=== PATIENT | female | born 1980 | race Two or more races ===

== ENCOUNTER 2022-07-23 22:01 | Emergency (ER) | payer MEDICARE, MEDICAID ==
[~2022-07-23] VITALS: Ht 152.4 cm; Wt 93.5 kg
[2022-07-23 23:51] LABS: Basophils # (auto) 0.2 10 ^3/uL (0-0.2); Basophils % (auto) 1.9 % (0.0-2.0); Eosinophils # (auto) 0.1 10 ^3/uL (0-0.8); Eosinophils % (auto) 0.5 % (0.0-7.0); Hematocrit 32.8 % (36.0-46.0); Hemoglobin 10.2 g/dL (12.2-16.2); Lymphocytes # (auto) 1.4 10 ^3/uL (0.4-5.4); Lymphocytes % (auto) 13.1 % (10.0-50.0); Mean Corpuscular Hemoglobin 23.2 pg (28.0-32.0); Mean Corpuscular Hgb Conc. 31.2 g/dL (32.0-36.0); Mean Corpuscular Volume 74.4 fL (80.0-100.0); Monocytes # (auto) 0.6 10 ^3/uL (0-1.3); Neutrophils # (auto) 8.8 10 ^3/uL (1.6-8.6); Neutrophils % (auto) 79.5 % (37.0-80.0); Red Blood Cells 4.41 10^6/uL (4.0-5.20); Red Cell Distribution Width 17.2 % (11.8-14.3); White Blood Cell 11.1 10^3/uL (4.4-10.8)
[2022-07-24 00:09] LABS: Albumin 3.2 g/dL (3.4-5.0); Calcium 8.4 mg/dL (8.5-10.1); Potassium 3.8 mmol/L (3.5-5.1)
[2022-07-24 00:11] LABS: Bilirubin, Total 0.2 mg/dL (0.2-1.0); Total Protein 7.2 g/dL (6.4-8.2)
[2022-07-24 00:19] LABS: Urine Bacteria NONE SEEN /hpf (None Seen); Urine Blood Negative /uL (Negative); Urine Specific Gravity 1.029 (1.001-1.035); Urine WBC 27 /hpf (0 - 5)
[2022-07-24] MEDS ORDERED: NITR-87 PO (01:20)
[2022-07-24] MEDS ORDERED: ZOFR4T PO (01:37)
[2022-07-24] MEDS ORDERED: ONDANSETRON ODT 4 MG TAB PO ONE (01:45)
[2022-07-24 02:34] VITALS: BP 138/84
== END 2022-07-24 02:39 | disposition home or self-care (01) ==
LOC: ER 22:04
DX: K92.2 Gastrointestinal hemorrhage, unspecified (principal); N39.0 Urinary tract infection, site not specified; E66.01 Morbid (severe) obesity due to excess calories; Z68.41 Body mass index [BMI] 40.0-44.9, adult; Z32.02 Encounter for pregnancy test, result negative
CPT/HCPCS: 36415; 80053; 81001; 81025; 85025; 86850; 86900; 86901; Q0162

== ENCOUNTER 2022-12-02 17:06 | Emergency (ER) | payer MEDICARE, MEDICAID ==
[~2022-12-02] VITALS: Ht 152.4 cm; Wt 90.1 kg
[~2022-12-02 17:06] MED LIST: NITR-87 PO; ZOFR4T PO
[2022-12-02 18:14] VITALS: BP 140/60; PULSE 120; RESP 20; TEMP 97.4; O2SAT 96
[2022-12-02] MEDS ORDERED: DexAMETHasone SOD PHOS 10MG/1ML VIAL INJ IM ONE (18:45)
[2022-12-02] MEDS ORDERED: HYDROcodone-ACET 5/325MG TAB PO ONE (18:45)
[2022-12-02] MEDS ORDERED: KETOROLAC TROMETH 60MG/2ML VIAL IM ONE (18:45)
[2022-12-02 20:06] LABS: Urine Bacteria FEW /hpf (None Seen); Urine Blood 3+ /uL (Negative); Urine Clarity HAZY (Clear); Urine Color PINK (Yellow); Urine Mucus FEW (None Seen); Urine Protein, UAD 1+ (Negative); Urine Specific Gravity 1.027 (1.001-1.035); Urine Urobilinogen Normal (Negative); Urine WBC 38 /hpf (0 - 5); Urine pH 5.5 (5.0-8.0)
[2022-12-02] MEDS ORDERED: METH-1181 PO (20:38)
[2022-12-02] MEDS ORDERED: NITR-87 PO (20:38)
[2022-12-02] MEDS ORDERED: IBUP-1456 PO (21:29)
== END 2022-12-02 22:04 | disposition home or self-care (01) ==
LOC: ER 17:06
DX: M54.42 Lumbago with sciatica, left side (principal); M54.41 Lumbago with sciatica, right side; N30.90 Cystitis, unspecified without hematuria; J45.909 Unspecified asthma, uncomplicated
CPT/HCPCS: 72100; 81001; 87086; 96372; 99284; J1100; J1885

== ENCOUNTER 2023-01-18 08:17 | Emergency (ER) | payer OTHER, MEDICAID ==
[~2023-01-18] VITALS: Ht 152.4 cm; Wt 89.3 kg
[~2023-01-18 08:17] MED LIST changes: +IBUP-1456 PO; +METH-1181 PO
[2023-01-18 09:09] VITALS: BP 127/53; PULSE 107; RESP 18; TEMP 98.3; O2SAT 98
[2023-01-18] MEDS ORDERED: ONDANSETRON ODT 4 MG TAB PO ONE (09:15)
[2023-01-18] MEDS ORDERED: ACETAMINOPHEN 500 MG TAB PO ONE (09:15)
[2023-01-18] MEDS ORDERED: IBUP-1456 PO (10:21)
[2023-01-18] MEDS ORDERED: AMOX875T3 PO (10:21)
== END 2023-01-18 10:26 | disposition home or self-care (01) ==
LOC: ER 08:17
DX: G44.209 Tension-type headache, unspecified, not intractable (principal); H66.91 Otitis media, unspecified, right ear; J45.909 Unspecified asthma, uncomplicated; Z86.2 Personal history of diseases of the blood and blood-forming organs and certain disorders involving the immune mechanism; Z79.1 Long term (current) use of non-steroidal anti-inflammatories (NSAID); Z79.2 Long term (current) use of antibiotics; Z79.899 Other long term (current) drug therapy
CPT/HCPCS: 70450; 99284; Q0162

== ENCOUNTER 2023-05-09 10:51 | Inpatient (IN) | payer OTHER, MEDICAID ==
[~2023-05-09] VITALS: Ht 180.3 cm; Wt 87.9 kg
[~2023-05-09 10:51] MED LIST changes: +AMOX875T3 PO
[2023-05-09] MEDS: ONDANSETRON ODT 4 MG TAB PO ONE (12:11)
[2023-05-09 12:24] LABS: Basophils # (auto) 0 10 ^3/uL (0-0.2); Eosinophils # (auto) 0.1 10 ^3/uL (0-0.8); Eosinophils % (auto) 1.2 % (0.0-7.0); Hematocrit 40.8 % (36.0-46.0); Monocytes # (auto) 0.3 10 ^3/uL (0-1.3); Nucleated Red Blood Cells % 0.1 %
[2023-05-09] MEDS: DICYCLOMINE HCL (10MG/ML) 2 ML AMPULE IM ONE (12:24)
[2023-05-09 12:26] LABS: Basophils % (auto) 0.4 % (0.0-2.0); Hemoglobin 13.3 g/dL (12.2-16.2); Lymphocytes # (auto) 1.5 10 ^3/uL (0.4-5.4); Lymphocytes % (auto) 19.9 % (10.0-50.0); Mean Corpuscular Hemoglobin 26.1 pg (28.0-32.0); Mean Corpuscular Hgb Conc. 32.5 g/dL (32.0-36.0); Mean Corpuscular Volume 80.5 fL (80.0-100.0); Monocytes % (auto) 4.6 % (0.0-12.0); Neutrophils # (auto) 5.4 10 ^3/uL (1.6-8.6); Neutrophils % (auto) 73.9 % (37.0-80.0); Red Blood Cells 5.07 10^6/uL (4.0-5.20); Red Cell Distribution Width 15.7 % (11.8-14.3); White Blood Cell 7.3 10^3/uL (4.4-10.8)
[2023-05-09 12:42] LABS: Alanine Aminotransferase 24 U/L (7-40); Albumin 4.4 g/dL (3.2-4.8); Alkaline Phosphatase 113 U/L (46-116); Anion Gap 4 (5-15); Aspartate Aminotransferase 14 U/L (13-40); BUN/Creatinine Ratio 22.9 (10.0-20.0); Blood Urea Nitrogen 16 mg/dL (9-23); Calcium 9.3 mg/dL (8.7-10.4); Carbon Dioxide 27 mmol/L (20-30); Chloride 108 mmol/L (98-107); Glucose 106 mg/dL (74-106); Lipase 35 U/L (12-53); Potassium 4.1 mmol/L (3.5-5.1); Sodium 139 mmol/L (136-145)
[2023-05-09 12:43] LABS: Bilirubin, Total 0.4 mg/dL (0.2-1.0)
[2023-05-09 14:07] LABS: Urine Bacteria NONE SEEN /hpf (None Seen); Urine Blood Negative /uL (Negative); Urine Clarity Clear (Clear); Urine Protein, UAD Negative (Negative); Urine Specific Gravity 1.018 (1.001-1.035); Urine Urobilinogen Normal (Negative); Urine WBC 2 /hpf (0 - 5); Urine pH 5.5 (5.0-8.0)
[2023-05-09 14:08] LABS: Urine Color Straw (Yellow)
[2023-05-09] MEDS ORDERED: ACETAMINOPHEN 325 MG TAB PO PRN (14:30)
[2023-05-09] MEDS ORDERED: NITROGLYCERIN 0.4 MG SL TAB SL PRN (14:30)
[2023-05-09] MEDS ORDERED: OMEP1CAP70 PO (14:30)
[2023-05-09] MEDS ORDERED: HYDROcodone-ACET 5/325MG TAB PO PRN (14:30)
[2023-05-09] MEDS ORDERED: DOCUSATE SOD 100 MG CAP PO PRN (14:30)
[2023-05-09] MEDS ORDERED: MONT-8 PO (14:30)
[2023-05-09] MEDS ORDERED: SUCR1TAB PO (14:30)
[2023-05-09] MEDS ORDERED: MORPHINE SULFATE INJ 2 MG/ml SYRG IV PRN ×2 (14:30)
[2023-05-09] MEDS: SODIUM CHLORIDE 0.9% 1,000 ML IV ONE (16:42)
[2023-05-09 20:40] VITALS: PULSE 106; RESP 18; O2SAT 96
[2023-05-09] MEDS: ONDANSETRON HCL 4 MG/2 ML VIAL IV PRN (21:00)
[2023-05-09] MEDS: FAMOTIDINE (10MG/ML) 2ML VL IV ONE (21:05)
[2023-05-09 22:04] VITALS: PULSE 80; RESP 17; O2SAT 99
[2023-05-09] MEDS: MONTELUKAST SODIUM 10 MG TAB PO SCH (22:55)
[2023-05-10] VITALS (10 sets, daily range): BP systolic 101–116; BP diastolic 56–69; PULSE 73–88; RESP 17–20; TEMP 97.3–98.4; O2SAT 93–99
[2023-05-10 06:31] LABS: Basophils # (auto) 0 10 ^3/uL (0-0.2); Eosinophils # (auto) 0.2 10 ^3/uL (0-0.8); Hemoglobin 11.8 g/dL (12.2-16.2); Neutrophils # (auto) 5.5 10 ^3/uL (1.6-8.6)
[2023-05-10 06:33] LABS: Basophils % (auto) 0.3 % (0.0-2.0); Eosinophils % (auto) 2.6 % (0.0-7.0); Hematocrit 36.4 % (36.0-46.0); Lymphocytes % (auto) 23.8 % (10.0-50.0); Mean Corpuscular Hemoglobin 26.1 pg (28.0-32.0); Mean Corpuscular Hgb Conc. 32.4 g/dL (32.0-36.0); Mean Corpuscular Volume 80.5 fL (80.0-100.0); Monocytes # (auto) 0.6 10 ^3/uL (0-1.3); Neutrophils % (auto) 66.3 % (37.0-80.0); Nucleated Red Blood Cells % 0.1 %; Red Blood Cells 4.53 10^6/uL (4.0-5.20); Red Cell Distribution Width 15.4 % (11.8-14.3); White Blood Cell 8.2 10^3/uL (4.4-10.8)
[2023-05-10 06:57] LABS: Alanine Aminotransferase 16 U/L (7-40); Albumin 3.8 g/dL (3.2-4.8); Alkaline Phosphatase 94 U/L (46-116); Anion Gap 8 (5-15); Aspartate Aminotransferase 12 U/L (13-40); BUN/Creatinine Ratio 11.4 (10.0-20.0); Bilirubin, Total 0.6 mg/dL (0.2-1.0); Blood Urea Nitrogen 8 mg/dL (9-23); Calcium 8.3 mg/dL (8.5-10.1); Carbon Dioxide 24 mmol/L (20-30); Chloride 108 mmol/L (98-107); Glucose 98 mg/dL (74-106); Potassium 3.5 mmol/L (3.5-5.1); Sodium 140 mmol/L (136-145); Total Protein 5.7 g/dL (5.7-8.2)
[2023-05-10] MEDS: PANTOPRAZOLE 40 MG TAB PO SCH ×2 (08:39→21:24)
[2023-05-10] MEDS: PROCHLORPERAZINE EDISYLATE 5 MG/ML 2ML VIAL IV PRN (08:39)
[2023-05-10] MEDS: SUCRALFATE 1 GM TAB PO SCH (08:39)
[2023-05-10] MEDS ORDERED: SODIUM CHLORIDE LOCK 10 ML ONE (13:38)
[2023-05-10] MEDS: LIDOCAINE VISCOUS 2% 15ML UD ONE (15:35)
[2023-05-10] MEDS: MIDAZOLAM HCL 5 MG/ML-1ML VIAL ONE (15:39)
[2023-05-10] MEDS: diphenhdrAMINE HCL 50 MG/1 ML VL ONE (15:39)
[2023-05-10] MEDS: fentaNYL CITRATE 100 MCG/2 ML VL ONE (15:39)
[2023-05-10] MEDS: SUCRALFATE 1 GM/10 ML ORAL SUSP PO SCH (17:07)
[2023-05-10] MEDS: METOCLOPRAMIDE HCL 5MG/ml INJ 2ml VIAL IV SCH (21:24)
[2023-05-11 01:00] VITALS: BP 144/65; PULSE 76; RESP 17; TEMP 98.2; O2SAT 96
[2023-05-11 05:00] VITALS: BP 111/65; PULSE 75; RESP 17; TEMP 98.1; O2SAT 97
[2023-05-11 08:00] VITALS: PULSE 76; RESP 18; O2SAT 96
[2023-05-11 09:00] VITALS: BP 122/65; PULSE 71; RESP 17; TEMP 97.8; O2SAT 98
[2023-05-11] MEDS ORDERED: SUCR1TAB31 OR (10:38)
[2023-05-11] MEDS ORDERED: METO-281 PO (10:38)
[2023-05-11] MEDS ORDERED: PANT40T PO (10:38)
[2023-05-11 13:00] VITALS: BP 124/68; PULSE 91; RESP 18; TEMP 98.3; O2SAT 96
== END 2023-05-11 14:56 | disposition home or self-care (01) | DRG 392 ==
LOC: ER 10:51 → TELE 14:26 → EAST 21:20
PROVIDERS: ADMIT Nurse Practitioner Family; ATTEND Family Medicine
PROC: 0DB68ZX Excision of Stomach, Via Natural or Artificial Opening Endoscopic, Diagnostic (ICD-10-PCS; 2023-05-10)
PROC: 0DB58ZX Excision of Esophagus, Via Natural or Artificial Opening Endoscopic, Diagnostic (ICD-10-PCS; 2023-05-10)
PROC: 0DB98ZX Excision of Duodenum, Via Natural or Artificial Opening Endoscopic, Diagnostic (ICD-10-PCS; principal; 2023-05-10 15:32)
DX: K29.90 Gastroduodenitis, unspecified, without bleeding (principal); K22.70 Barrett's esophagus without dysplasia; E66.01 Morbid (severe) obesity due to excess calories; E86.0 Dehydration; J45.909 Unspecified asthma, uncomplicated; K44.9 Diaphragmatic hernia without obstruction or gangrene; D64.9 Anemia, unspecified; K76.0 Fatty (change of) liver, not elsewhere classified; Z87.11 Personal history of peptic ulcer disease; Z90.49 Acquired absence of other specified parts of digestive tract; Z79.2 Long term (current) use of antibiotics; Z79.1 Long term (current) use of non-steroidal anti-inflammatories (NSAID); Z68.27 Body mass index [BMI] 27.0-27.9, adult; Z87.19 Personal history of other diseases of the digestive system
CPT/HCPCS: 36415; 43239; 74176; 76705; 80053; 81001; 83690; 84484; 84702; 85025; 96360; 96372; G0378; J2250; J2405; J3490; Q0162

== ENCOUNTER 2023-06-05 15:24 | Emergency (ER) | payer OTHER, MEDICAID ==
[~2023-06-05] VITALS: Ht 157.5 cm; Wt 81.0 kg
[~2023-06-05 15:24] MED LIST changes: +LEVO750T40 PO; +METO-281 PO; +MONT-8 PO; +OMEP1CAP70 PO; +PANT40T PO; +SUCR1TAB PO; +SUCR1TAB31 OR
[2023-06-05 15:49] LABS: Basophils # (auto) 0 10 ^3/uL (0-0.2); Basophils % (auto) 0.4 % (0.0-2.0); Eosinophils # (auto) 0 10 ^3/uL (0-0.8); Eosinophils % (auto) 0.1 % (0.0-7.0); Hematocrit 36.7 % (36.0-46.0); Hemoglobin 11.7 g/dL (12.2-16.2); Lymphocytes % (auto) 8.4 % (10.0-50.0); Mean Corpuscular Hemoglobin 25.5 pg (28.0-32.0); Mean Corpuscular Hgb Conc. 31.7 g/dL (32.0-36.0); Mean Corpuscular Volume 80.4 fL (80.0-100.0); Monocytes # (auto) 0.4 10 ^3/uL (0-1.3); Monocytes % (auto) 3.3 % (0.0-12.0); Neutrophils # (auto) 10.4 10 ^3/uL (1.6-8.6); Neutrophils % (auto) 87.8 % (37.0-80.0); Red Blood Cells 4.57 10^6/uL (4.0-5.20); Red Cell Distribution Width 15.5 % (11.8-14.3); White Blood Cell 11.9 10^3/uL (4.4-10.8)
[2023-06-05 16:03] LABS: Alanine Aminotransferase 73 U/L (7-40); Alkaline Phosphatase 103 U/L (46-116); Anion Gap 7 (5-15); Aspartate Aminotransferase 40 U/L (13-40); BUN/Creatinine Ratio 24.6 (10.0-20.0); Blood Urea Nitrogen 17 mg/dL (9-23); Calcium 8.8 mg/dL (8.5-10.1); Carbon Dioxide 24 mmol/L (20-30); Chloride 110 mmol/L (98-107); Glucose 118 mg/dL (74-106); Potassium 3.6 mmol/L (3.5-5.1); Sodium 141 mmol/L (136-145)
[2023-06-05 16:04] LABS: Albumin 4.1 g/dL (3.2-4.8); Bilirubin, Total 0.2 mg/dL (0.2-1.0); Total Protein 6.4 g/dL (5.7-8.2)
[2023-06-05] MEDS ORDERED: ACET500T58 PO (21:02)
[2023-06-05] MEDS ORDERED: BENZ200C64 PO (21:08)
[2023-06-05 21:42] VITALS: BP 134/78; PULSE 77; RESP 16; TEMP 97.9; O2SAT 98
[2023-06-05] MEDS: KETOROLAC TROMETH 60MG/2ML VIAL IM ONE (21:42)
== END 2023-06-05 22:19 | disposition home or self-care (01) ==
LOC: EDBD 15:24 → ER 15:24
DX: R07.89 Other chest pain (principal); J45.909 Unspecified asthma, uncomplicated; K21.9 Gastro-esophageal reflux disease without esophagitis; Z86.2 Personal history of diseases of the blood and blood-forming organs and certain disorders involving the immune mechanism; Z90.49 Acquired absence of other specified parts of digestive tract
CPT/HCPCS: 36415; 71045; 80053; 84484; 85025; 93005

== ENCOUNTER 2023-11-08 13:41 | Inpatient (IN) | payer OTHER, MEDICAID ==
[~2023-11-08] VITALS: Ht 152.4 cm; Wt 87.7 kg
[~2023-11-08 13:41] MED LIST changes: +ACET500T58 PO; +BENZ200C64 PO
[2023-11-08 14:18] LABS: Basophils # (auto) 0 10 ^3/uL (0-0.2); Basophils % (auto) 0.8 % (0.0-2.0); Eosinophils # (auto) 0.2 10 ^3/uL (0-0.8); Eosinophils % (auto) 3.1 % (0.0-7.0); Hematocrit 38.5 % (36.0-46.0); Hemoglobin 12.8 g/dL (12.2-16.2); Lymphocytes # (auto) 1.5 10 ^3/uL (0.4-5.4); Lymphocytes % (auto) 23.6 % (10.0-50.0); Mean Corpuscular Hemoglobin 26.5 pg (28.0-32.0); Mean Corpuscular Hgb Conc. 33.3 g/dL (32.0-36.0); Mean Corpuscular Volume 79.7 fL (80.0-100.0); Monocytes # (auto) 0.4 10 ^3/uL (0-1.3); Monocytes % (auto) 7.1 % (0.0-12.0); Neutrophils # (auto) 4.1 10 ^3/uL (1.6-8.6); Neutrophils % (auto) 65.4 % (37.0-80.0); Platelet Count (auto) 371 10^3/uL (140-450); Red Blood Cells 4.83 10^6/uL (4.0-5.20); Red Cell Distribution Width 15.8 % (11.8-14.3); White Blood Cell 6.3 10^3/uL (4.4-10.8)
[2023-11-08 14:33] LABS: Chloride 108 mmol/L (98-107); Potassium 3.8 mmol/L (3.5-5.1); Sodium 141 mmol/L (136-145)
[2023-11-08 14:34] LABS: Anion Gap 8 (5-15); Carbon Dioxide 25 mmol/L (20-31)
[2023-11-08 14:39] LABS: BUN/Creatinine Ratio 20.3 (10.0-20.0); Blood Urea Nitrogen 14 mg/dL (9-23); Glucose 97 mg/dL (74-106)
[2023-11-08 15:17] LABS: Urine Bacteria MANY /hpf (None Seen); Urine Blood 1+ /uL (Negative); Urine Budding Yeast FEW /hpf (None Seen); Urine Clarity Turbid (Clear); Urine Color Colorless (Yellow); Urine Protein, UAD Negative (Negative); Urine Specific Gravity 1.019 (1.001-1.035); Urine Urobilinogen Normal (Negative); Urine WBC 18 /hpf (0 - 5)
[2023-11-08 16:30] VITALS: PULSE 89; RESP 16; O2SAT 97
[2023-11-08] MEDS: ASPirin 325 MG TAB PO ONE (16:50)
[2023-11-08 19:24] VITALS: PULSE 93; RESP 16; O2SAT 97
[2023-11-08] MEDS: cefTRIAXone 1GM/50ML D5W 50 ML IV ONE (19:28)
[2023-11-08] MEDS ORDERED: LORazepam 2MG/ML-1ML VIAL IV PRN (22:30)
[2023-11-08] MEDS ORDERED: MORPHINE SULFATE INJ 2 MG/ml SYRG IV PRN (22:30)
[2023-11-08] MEDS ORDERED: NITROGLYCERIN 0.4 MG SL TAB SL PRN (22:30)
[2023-11-08] MEDS: BUDESONIDE (INHALATION) 0.5 MG/2 ML NEB NEB ONE (22:58)
[2023-11-08] MEDS: PANTOPRAZOLE 40 MG/10 ML VIAL INJ IV ONE (22:59)
[2023-11-08 23:00] VITALS: O2SAT 99
[2023-11-08 23:01] VITALS: BP 137/90; PULSE 80; RESP 18; TEMP 98.6; O2SAT 99
[2023-11-08 23:15] LABS: Albumin 4.9 g/dL (3.2-4.8); Bilirubin, Total 0.4 mg/dL (0.2-1.0); Total Protein 7.7 g/dL (5.7-8.2)
[2023-11-08 23:35] LABS: Bilirubin, Direct 0.1 mg/dL (<0.3)
[2023-11-09] VITALS (7 sets, daily range): BP systolic 95–126; BP diastolic 60–72; PULSE 80–103; RESP 16–20; TEMP 97.6–98.3; O2SAT 96–100
[2023-11-09] MEDS: SODIUM CHLORIDE 0.9% 1,000 ML IV ONE (00:27)
[2023-11-09 03:06] LABS: Basophils # (auto) 0 10 ^3/uL (0-0.2); Eosinophils # (auto) 0.2 10 ^3/uL (0-0.8); Lymphocytes # (auto) 1.8 10 ^3/uL (0.4-5.4); Mean Corpuscular Hgb Conc. 32.9 g/dL (32.0-36.0); Monocytes # (auto) 0.5 10 ^3/uL (0-1.3)
[2023-11-09 03:07] LABS: Basophils % (auto) 0.5 % (0.0-2.0); Eosinophils % (auto) 3.1 % (0.0-7.0); Hematocrit 38.2 % (36.0-46.0); Hemoglobin 12.6 g/dL (12.2-16.2); Lymphocytes % (auto) 23.9 % (10.0-50.0); Mean Corpuscular Hemoglobin 26.5 pg (28.0-32.0); Mean Corpuscular Volume 80.4 fL (80.0-100.0); Monocytes % (auto) 6.7 % (0.0-12.0); Neutrophils # (auto) 5.1 10 ^3/uL (1.6-8.6); Neutrophils % (auto) 65.8 % (37.0-80.0); Nucleated Red Blood Cells % 0.1 %; Platelet Count (auto) 363 10^3/uL (140-450); Red Blood Cells 4.75 10^6/uL (4.0-5.20); Red Cell Distribution Width 16.1 % (11.8-14.3); White Blood Cell 7.7 10^3/uL (4.4-10.8)
[2023-11-09 03:14] LABS: Alanine Aminotransferase 125 U/L (7-40); Albumin 4.7 g/dL (3.2-4.8); Alkaline Phosphatase 121 U/L (46-116); Anion Gap 7 (5-15); Aspartate Aminotransferase 63 U/L (13-40); BUN/Creatinine Ratio 16.7 (10.0-20.0); Bilirubin, Total 0.4 mg/dL (0.2-1.0); Blood Urea Nitrogen 12 mg/dL (9-23); Calcium 9.6 mg/dL (8.7-10.4); Carbon Dioxide 22 mmol/L (20-31); Chloride 108 mmol/L (98-107); Glucose 114 mg/dL (74-106); Magnesium 2.1 mg/dL (1.6-2.6); Potassium 3.4 mmol/L (3.5-5.1); Sodium 137 mmol/L (136-145); Total Protein 7.4 g/dL (5.7-8.2)
[2023-11-09] MEDS: POTASSIUM EFFERVESENT TAB 25 MEQ PO ONE (08:23)
[2023-11-09] MEDS: PANTOPRAZOLE 40 MG/10 ML VIAL INJ IV SCH (09:43)
[2023-11-09] MEDS: cefTRIAXone 1GM/50ML D5W 50 ML IV SCH (09:43)
[2023-11-09] MEDS ORDERED: LORazepam 2MG/ML-1ML VIAL IV PRN (10:00)
[2023-11-09] MEDS: ACETAMINOPHEN 325 MG TAB PO PRN (12:39)
[2023-11-09] MEDS ORDERED: LEVOTAB51 PO (14:13)
[2023-11-09] MEDS ORDERED: BECL40AE11 IN (14:13)
[2023-11-09] MEDS ORDERED: MIDO2.5T3 PO (14:13)
[2023-11-09] MEDS ORDERED: FLUT1SPR5 (14:13)
[2023-11-09] MEDS: ALBUTEROL SULF 2.5 MG/0.5ML(0.5%) NEB SOLN NEB PRN (20:02)
[2023-11-09] MEDS: IPRATROPIUM BROM 0.5 MG/2.5ML INH SOL NEB PRN (20:03)
[2023-11-09] MEDS: ONDANSETRON HCL 4 MG/2 ML VIAL IV PRN (20:08)
[2023-11-09] MEDS ORDERED: cefTRIAXone 1GM/50ML D5W 50 ML IV SCH (21:00)
[2023-11-10] VITALS (8 sets, daily range): BP systolic 90–143; BP diastolic 34–106; PULSE 58–96; RESP 17–20; TEMP 96.7–98.2; O2SAT 84–100
[2023-11-10 06:58] LABS: Basophils # (auto) 0 10 ^3/uL (0-0.2); Eosinophils # (auto) 0.2 10 ^3/uL (0-0.8); Hemoglobin 12.1 g/dL (12.2-16.2); Lymphocytes # (auto) 1.7 10 ^3/uL (0.4-5.4)
[2023-11-10 07:02] LABS: Basophils % (auto) 0.5 % (0.0-2.0); Eosinophils % (auto) 3.8 % (0.0-7.0); Hematocrit 36.3 % (36.0-46.0); Lymphocytes % (auto) 27.8 % (10.0-50.0); Mean Corpuscular Hemoglobin 26.7 pg (28.0-32.0); Mean Corpuscular Hgb Conc. 33.4 g/dL (32.0-36.0); Mean Corpuscular Volume 79.9 fL (80.0-100.0); Monocytes # (auto) 0.4 10 ^3/uL (0-1.3); Monocytes % (auto) 6.1 % (0.0-12.0); Neutrophils # (auto) 3.7 10 ^3/uL (1.6-8.6); Neutrophils % (auto) 61.8 % (37.0-80.0); Platelet Count (auto) 334 10^3/uL (140-450); Red Blood Cells 4.54 10^6/uL (4.0-5.20); Red Cell Distribution Width 15.4 % (11.8-14.3)
[2023-11-10 07:05] LABS: Anion Gap 9 (5-15); Carbon Dioxide 23 mmol/L (20-31); Chloride 107 mmol/L (98-107); Potassium 4.1 mmol/L (3.5-5.1); Sodium 139 mmol/L (136-145)
[2023-11-10 07:07] LABS: Calcium 9.5 mg/dL (8.7-10.4)
[2023-11-10 07:11] LABS: Glucose 105 mg/dL (74-106)
[2023-11-10 07:12] LABS: BUN/Creatinine Ratio 24.6 (10.0-20.0); Blood Urea Nitrogen 16 mg/dL (9-23)
[2023-11-10 09:01] LABS: Albumin 4.3 g/dL (3.2-4.8); Bilirubin, Direct 0.1 mg/dL (<0.3); Bilirubin, Total 0.4 mg/dL (0.2-1.0); Total Protein 6.8 g/dL (5.7-8.2)
[2023-11-10 11:48] LABS: Rapid Influenza A Negative (Negative); Rapid Influenza B Negative (Negative)
[2023-11-10 11:49] LABS: COVID19 ANTIGEN SOFIA FIA NEGATIVE (NEGATIVE)
[2023-11-10] MEDS ORDERED: DEXT1SYP9 PO (12:59)
[2023-11-10] MEDS ORDERED: CEPH250C PO (12:59)
[2023-11-10] MEDS ORDERED: guaiFENesin-DM 100/10mg/5ml SYR PO PRN (13:00)
[2023-11-10] MEDS: BUDESONIDE (INHALATION) 0.5 MG/2 ML NEB NEB ONE (13:09)
[2023-11-10] MEDS ORDERED: ALBUAER3 IN (16:07)
[2023-11-12 08:45] LABS: Hepatitis B Surface Antigen Negative (Negative)
[2023-11-12 09:06] LABS: Hepatitis A Ab IgM Negative
[2023-11-12 09:07] LABS: Hepatitis B Core IgM Negative; Hepatitis C Antibody Negative (Negative)
== END 2023-11-10 17:00 | disposition home or self-care (01) | DRG 202 ==
LOC: ER 13:41 → OVERFLOW 22:32 → WEST WING 11-09 11:05
PROVIDERS: ADMIT Internal Medicine; ATTEND Internal Medicine
DX: J45.901 Unspecified asthma with (acute) exacerbation (principal); N30.00 Acute cystitis without hematuria; J06.9 Acute upper respiratory infection, unspecified; K21.9 Gastro-esophageal reflux disease without esophagitis; K22.70 Barrett's esophagus without dysplasia; R74.01 Elevation of levels of liver transaminase levels; E87.6 Hypokalemia; K76.0 Fatty (change of) liver, not elsewhere classified; Z90.49 Acquired absence of other specified parts of digestive tract; Z87.11 Personal history of peptic ulcer disease; Z79.899 Other long term (current) drug therapy
CPT/HCPCS: 36415; 71045; 76705; 80048; 80053; 80074; 80076; 81001; 83735; 83880; 84484; 84702; 85025; 87426; 87804; 94640; 96365; G0378; J2405; J2470

== ENCOUNTER 2023-12-05 18:44 | Emergency (ER) | payer OTHER, MEDICAID ==
[~2023-12-05] VITALS: Ht 152.4 cm; Wt 83.1 kg
[~2023-12-05 18:44] MED LIST changes: +ALBUAER3 IN; -AMOX875T3 PO; +BECL40AE11 IN; +CEPH250C PO; +DEXT1SYP9 PO; +FLUT1SPR5; -IBUP-1456 PO; -LEVO750T40 PO; +LEVOTAB51 PO; -METH-1181 PO; +MIDO2.5T3 PO; -MONT-8 PO; -NITR-87 PO; -PANT40T PO; -SUCR1TAB31 OR; -ZOFR4T PO
[2023-12-05 20:42] VITALS: BP 118/90
[2023-12-05 20:43] VITALS: PULSE 87; RESP 16; O2SAT 99
[2023-12-05] MEDS: SUMAtriptan SUCCINATE 6 MG/0.5 ML VL SC ONE (20:47)
[2023-12-05] MEDS: HYDROcodone-ACET 10/325MG TAB PO ONE (20:48)
[2023-12-05] MEDS ORDERED: SUMA50TA2 PO (21:40)
[2023-12-05 21:49] LABS: Urine Bacteria FEW /hpf (None Seen); Urine Blood 1+ /uL (Negative); Urine Clarity Turbid (Clear); Urine Color Yellow (Yellow); Urine Mucus FEW (None Seen); Urine Protein, UAD 1+ (Negative); Urine Specific Gravity 1.036 (1.001-1.035); Urine Urobilinogen Normal (Negative); Urine WBC 56 /hpf (0 - 5); Urine pH 5.5 (5.0-9.0)
[2023-12-05 22:07] VITALS: PULSE 86
== END 2023-12-05 22:44 | disposition home or self-care (01) ==
LOC: ER 18:44
DX: S33.5XXA Sprain of ligaments of lumbar spine, initial encounter (principal); G43.009 Migraine without aura, not intractable, without status migrainosus; K21.9 Gastro-esophageal reflux disease without esophagitis; J45.909 Unspecified asthma, uncomplicated; R42 Dizziness and giddiness; Z79.51 Long term (current) use of inhaled steroids; Z79.899 Other long term (current) drug therapy; Z87.11 Personal history of peptic ulcer disease; Z90.49 Acquired absence of other specified parts of digestive tract
CPT/HCPCS: 70450; 81001; 93005; 96372; 99285; J3030